=== PATIENT | female | born 2000 | race Caucasian/White ===

== ENCOUNTER 2020-06-17 01:41 | Inpatient (IN) ==
[2020-06-17 02:35] LABS: Appearance Urine Clear (Clear); Bilirubin Urine Negative (Negative); Blood Urine Negative (Negative); Color Urine Yellow; Glucose Urine UA Negative (Negative); Ketones Urine Negative (Negative); Leukocyte Esterase Urine Negative (Negative); Nitrite Urine Negative (Negative); Protein Urine Negative (Negative); Specific Gravity Urine 1.011 (1.000-1.030); Urobilinogen Urine Negative (Negative); pH Urine 7.5 (4.5-7.5)
[2020-06-17 02:36] LABS: Basophils # (auto) 0.01 K/uL (0-0.2); Basophils % (auto) 0.1 %; Eosinophils # (auto) 0.05 K/uL (0-0.5); Eosinophils % (auto) 0.6 %; Hematocrit (blood only) 38.6 % (37-47); Hemoglobin 13.3 g/dL (12.0-16.0); Immature Granulocytes # (auto) 0.01 K/uL (0.00-0.02); Immature Granulocytes % (auto) 0.1 %; Lymphocytes # (auto) 2.45 K/uL (1.2-3.4); Lymphocytes % (auto) 27.3 %; Mean Corpuscular Hemoglobin 30.9 pg (25-34); Mean Corpuscular Hgb Conc 34.5 g/dL (32-36); Mean Corpuscular Volume 89.8 fL (80-100); Mean Platelet Volume 9.9 fL (7.4-10.4); Monocytes # (auto) 0.48 K/uL (0.11-0.59); Monocytes % (auto) 5.3 %; Neutrophils # (auto) 5.99 K/uL (1.4-6.5); Neutrophils % (auto) 66.6 %; Platelet Count 205 K/uL (130-400); RDW Coefficient of Variation 12.2 % (11.5-14.5); RDW Standard Deviation 40.1 fL (36.4-46.3); White Blood Count 8.99 K/uL (4.8-10.8)
[2020-06-17 02:47] LABS: Pregnancy Test, Serum Negative (Negative)
[2020-06-17 02:55] LABS: Amphetamines+Metham, Urine Neg (Neg); Barbiturates, Urine Neg (Neg); Benzodiazepine, Urine Neg (Neg); Cocaine, Urine Neg (Neg); MDMA (Ecstacy), Urine Neg (Neg); Methadone, Urine Neg (Neg); Opiate, Urine Neg (Neg); Phencyclidine, Urine Neg (Neg)
[2020-06-17 02:56] LABS: Albumin Level 3.6 gm/dl (3.4-5.0); BUN Creatinine Ratio 21.4 (10-20); Calcium 9.1 mg/dl (8.5-10.1); Creatinine Clr Calc Pharmacy 64.7 ml/min; Est GFR (African American) 91.7; Est GFR (Non-African American) 79.1; Potassium 3.7 mmol/L (3.5-5.1)
[2020-06-17 02:58] LABS: Acetaminophen < 2 ug/ml (10-30); Salicylate < 1.7 mg/dl (2.8-20)
[2020-06-17 03:06] LABS: Albumin Globulin Ratio 1.1 (0.9-2); Bilirubin,Total 0.2 mg/dl (0.2-1); Globulin 3.3 gm/dl (2.5-4.0); Thyroid Stimulating Hormone 1.46 uIu/ml (0.300-4.500); Total Protein 6.9 gm/dl (6.4-8.2)
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
[2020-06-17] MEDS ORDERED: ACETAMINOPHEN 325 MG TAB PO PRN (06:27)
[2020-06-17] MEDS ORDERED: SODIUM CHLORIDE 0.65% NA SOLN 45 ML (OCEAN) PRN (06:27)
[2020-06-17] MEDS ORDERED: ALUMINUM/MAGNESIUM SUSP 30 ML UDC PO PRN (06:27)
[2020-06-17] MEDS ORDERED: MAGNESIUM HYDROXIDE SUSP 30 ML UDC PO PRN (06:27)
[2020-06-17] MEDS ORDERED: BISMUTH SUBSALICYLATE PER ML OMNICELL CHARGE PO PRN (06:27)
[2020-06-17] MEDS ORDERED: [UNRECOGNIZED DRUG - REMARK] SCH (08:00)
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
[2020-06-17] MEDS ORDERED: NORETHINDRONE E ESTRADIOL IRON PO SCH (11:30)
[2020-06-17] MEDS: PATIENT'S OWN ORAL CONTRACEPTIVE PO SCH (18:01)
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
[2020-06-18] MEDS: MULTIVITAMIN TAB PO SCH (09:14)
[2020-06-18] MEDS: PATIENT'S OWN ORAL CONTRACEPTIVE PO SCH (09:14)
[2020-06-18] MEDS: SACCHAROMYCES BOULARDII 250 MG CAP PO SCH (09:14)
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
[2020-06-19] MEDS: MULTIVITAMIN TAB PO SCH (10:15)
[2020-06-19] MEDS: SACCHAROMYCES BOULARDII 250 MG CAP PO SCH (10:15)
[2020-06-19] MEDS: PATIENT'S OWN ORAL CONTRACEPTIVE PO SCH (10:16)
== END 2020-06-19 11:21 | disposition home or self-care (01) | DRG 881 ==
LOC: ED 01:41 → 3S 05:38